=== PATIENT | male | born 2000 | race Caucasian/White ===

== ENCOUNTER 2020-11-09 14:37 | Emergency (ER) | payer SELFPAY ==
[~2020-11-09] VITALS: Ht 177.8 cm; Wt 77.1 kg
[2020-11-09 14:39] VITALS: BP 132/86
[2020-11-09 15:04] VITALS: BP 132/86
== END 2020-11-09 15:01 | disposition left against medical advice (07) ==
LOC: MED 14:37
DX: T40.2X1A Poisoning by other opioids, accidental (unintentional), initial encounter (principal); R41.82 Altered mental status, unspecified; F12.10 Cannabis abuse, uncomplicated; Y92.89 Other specified places as the place of occurrence of the external cause
CPT/HCPCS: 99283